=== PATIENT | male | born 1965 | race Caucasian/White ===

== ENCOUNTER 2022-02-06 09:17 | Emergency (ER) | payer OTHER ==
[~2022-02-06 09:17] MED LIST: CYCLOBENZAPRINE10 MG PO; IBUPROFEN600 MG PO
[2022-02-06 10:02] LABS: HEMOGLOBIN 15.3 gm/dl (14.0-17.5); RED BLOOD COUNT 4.77 M/UL (4.20-5.50); WHITE BLOOD COUNT 10.8 K/UL (4.5-11.0)
[2022-02-06 10:20] LABS: BUN/CREATININE RATIO 27 (0-10)
[2022-02-06] MEDS ORDERED: FLOMAX 0.4 MG0.4 MG PO (10:57)
== END 2022-02-06 11:05 | disposition home or self-care (01) ==
LOC: ER1 09:17
PROVIDERS: Nurse Practitioner
DX: N13.2 Hydronephrosis with renal and ureteral calculous obstruction (principal); I10 Essential (primary) hypertension; Z88.8 Allergy status to other drugs, medicaments and biological substances; F17.210 Nicotine dependence, cigarettes, uncomplicated
CPT/HCPCS: 80053; 81001; 85025; 87086; 96360; 99284